=== PATIENT | female | born 1965 | race Caucasian/White ===

== ENCOUNTER 2022-07-02 13:08 | Emergency (ER) | payer MEDICAID ==
[~2022-07-02] VITALS: Ht 165.1 cm; Wt 59.0 kg
[2022-07-02 13:13] VITALS: BP 106/68
[2022-07-02] MEDS ORDERED: ALBUTEROL (0.083%) 2.5MG/3ML NEB HHN STA (14:09)
[2022-07-02] MEDS ORDERED: PREDNISONE 20MG TABLET PO STA (14:09)
[2022-07-02] MEDS ORDERED: IPRATROPIUM BROMIDE (0.02%) 0.5MG/2.5ML NEB HHN STA (14:09)
[2022-07-02] MEDS ORDERED: ACETAMINOPHEN 325MG TABLET PO ONE (14:15)
[2022-07-02] MEDS ORDERED: LEVOFLOXACIN 750MG PREMIX 150 ML IV ONE (15:00)
[2022-07-02 15:19] LABS: HEMATOCRIT. 47.2 % (36.0-48.0); MEAN CORPUSCULAR HEMOGLOBIN 33.5 pg (28.0-32.0); MEAN CORPUSCULAR VOLUME 98.9 fL (81.0-99.0); MEAN PLATELET VOLUME 7.8 fl (7.4-10.4); PLATELET 188 x1000/uL (130-400); RED BLOOD CELL COUNT 4.77 mill/uL (4.2-5.4); RED CELL DISTRIBUTION WIDTH 12.5 % (11.6-14.6)
[2022-07-02 15:29] LABS: CHLORIDE 102 mEq/L (98-107)
[2022-07-02 16:04] LABS: PLATELET ESTIMATE NORMAL
[2022-07-02] MEDS ORDERED: ACETAMINOPHEN 325MG TABLET PO NR (18:00)
[2022-07-02] MEDS ORDERED: PREDNISONE 20MG TABLET PO NR (18:01)
[2022-07-02] MEDS ORDERED: LEVO750T68 MT (19:32)
== END 2022-07-02 19:47 | disposition home or self-care (01) ==
LOC: ER 13:08 → ENRESERV 19:28 → CANRESERV 19:28 → ER 19:47 → CANBEDREQ 22:43
DX: J18.9 Pneumonia, unspecified organism (principal); J44.9 Chronic obstructive pulmonary disease, unspecified; M19.90 Unspecified osteoarthritis, unspecified site; Z91.14 Patient's other noncompliance with medication regimen; Z91.040 Latex allergy status
CPT/HCPCS: 36415; 71045; 80053; 83880; 84484; 85025; 93005; 96365; 99285; J1956; J7512

== ENCOUNTER 2022-07-23 17:13 | Inpatient (IN) | payer MEDICAID ==
[~2022-07-23] VITALS: Ht 165.1 cm; Wt 63.0 kg
[~2022-07-23 17:13] MED LIST: LEVO750T68 MT
[2022-07-23] MEDS ORDERED: ONDANSETRON HCL 4MG/2ML INJ IV STA (18:58)
[2022-07-23] MEDS ORDERED: MORPHINE SULFATE 4 MG/ML CPJ (NOT FOR IM USE) IV STA (18:58)
[2022-07-23] MEDS ORDERED: SODIUM CHLORIDE 0.9% 1,000 ML IV ONE (19:00)
[2022-07-23 19:25] LABS: HEMATOCRIT. 48.3 % (36.0-48.0); HEMOGLOBIN. 16.4 g/dL (12.0-16.0); MEAN CORPUSCULAR HEMOGLOBIN 33.5 pg (28.0-32.0); MEAN CORPUSCULAR VOLUME 98.8 fL (81.0-99.0); MEAN PLATELET VOLUME 7.5 fl (7.4-10.4); PLATELET 311 x1000/uL (130-400); RED BLOOD CELL COUNT 4.89 mill/uL (4.2-5.4); RED CELL DISTRIBUTION WIDTH 12.7 % (11.6-14.6)
[2022-07-23 19:34] LABS: PROTHROMBIN TIME 10.8 sec (9.6-11.0)
[2022-07-23 19:35] LABS: CHLORIDE 103 mEq/L (98-107)
[2022-07-23 19:44] LABS: PLATELET ESTIMATE NORMAL
[2022-07-23] MEDS ORDERED: POTASSIUM CHLORIDE 20MEQ TABLET SR PO NR (20:15)
[2022-07-23] MEDS ORDERED: MORPHINE SULFATE 4 MG/ML CPJ (NOT FOR IM USE) IV NR (23:00)
[2022-07-23] MEDS ORDERED: MAGNESIUM/ALUMINUM HYDROXIDE/SIMETHICONE 30ML UDC PO PRN (23:00)
[2022-07-23] MEDS ORDERED: NITROGLYCERIN 0.4MG TABLET SL SL PRN (23:00)
[2022-07-23] MEDS ORDERED: GUAIFENESIN 200MG/10ML SUGAR FREE UDC PO PRN (23:00)
[2022-07-23] MEDS ORDERED: ONDANSETRON HCL 4MG/2ML INJ IV PRN (23:00)
[2022-07-23] MEDS ORDERED: DOCUSATE SODIUM 100MG CAPSULE PO PRN (23:00)
[2022-07-23] MEDS ORDERED: CLONIDINE 0.1MG TABLET PO PRN (23:00)
[2022-07-23] MEDS ORDERED: ACETAMINOPHEN 325MG TABLET PO PRN (23:00)
[2022-07-23] MEDS ORDERED: PIPERACILLIN/TAZ 3.375G PREMIX 50 ML IV SCH (23:00)
[2022-07-23] MEDS ORDERED: ONDANSETRON HCL 4MG/2ML INJ IV NR (23:00)
[2022-07-23] MEDS ORDERED: IPRATROPIUM/ALBUTEROL 0.5-3(2.5)MG/3ML NEB NEB PRN (23:00)
[2022-07-23] MEDS ORDERED: SODIUM CHLORIDE 0.9% 1000ML BAG (SEPSIS BOLUS) IV ONE (23:15)
[2022-07-23] MEDS ORDERED: IOHEXOL-300 100 ML BOTTLE ONE (23:27)
[2022-07-23] MEDS: PIPERACILLIN/TAZ 3.375G PREMIX 50 ML IV NR (23:43)
[2022-07-24 00:13] LABS: ETHANOL BLOOD < 10 mg/dL; HDL CHOLESTEROL 59 mg/dL (40-59); LDL CHOLESTEROL 81 mg/dL (5-100); T4 FREE 1.16 ng/dL (0.76-1.46); TOTAL IRON BINDING CAPACITY 230 ug/dL (250-450)
[2022-07-24 00:19] LABS: CLARITY URINE CLEAR (CLEAR); COLOR URINE YELLOW (YELLOW); KETONES URINE NEGATIVE (NEGATIVE); LEUKOCYTE ESTERASE URINE TRACE (NEGATIVE); NITRITE URINE NEGATIVE (NEGATIVE); OCCULT BLOOD URINE 2+ (NEGATIVE); PH URINE 7.5 (4.5-8.0); PROTEIN URINE NEGATIVE (NEGATIVE); SPECIFIC GRAVITY URINE 1.007 (1.005-1.030); UROBILINOGEN URINE 0.2 E.U./dL (0.2-1.0)
[2022-07-24 00:30] LABS: VITAMIN B12 SERUM 388 pg/mL (211-911)
[2022-07-24 01:07] LABS: *AMPHETAMINES SCREEN URINE PRESUMTIVE POSITIVE (NEGATIVE); *BARBITURATES SCREEN URINE NEGATIVE (NEGATIVE); *BENZODIAZEPINES SCREEN URINE NEGATIVE (NEGATIVE); *COCAINE SCREEN URINE NEGATIVE (NEGATIVE); CANNABINOID URINE SCREEN PRESUMTIVE POSITIVE (NEGATIVE); METHADONE URINE SCREEN NEGATIVE (NEGATIVE); OPIATES URINE SCREEN PRESUMTIVE POSITIVE (NEGATIVE); PHENCYCLIDINE URINE SCREEN NEGATIVE (NEGATIVE)
[2022-07-24 03:00] VITALS: BP 119/57
[2022-07-24] MEDS: KETOROLAC 15MG/ML VIAL IV PRN ×4 (03:19→22:47)
[2022-07-24 04:00] VITALS: BP 118/55
[2022-07-24] MEDS: PIPERACILLIN/TAZOBACTAM 3.375G in DEXT 5% WATER 50ML IV SCH ×3 (06:05→22:51)
[2022-07-24 08:00] VITALS: BP 127/61
[2022-07-24] MEDS ORDERED: PANTOPRAZOLE SODIUM 40 MG/VIAL IV SCH (09:00)
[2022-07-24] MEDS: ACETAMINOPHEN 325MG TABLET PO PRN (09:05)
[2022-07-24 11:31] LABS: BASOPHILS % 0.3 % (0.0-2.0); EOSINOPHILS % 0.7 % (0.0-5.0); HEMATOCRIT. 42.1 % (36.0-48.0); HEMOGLOBIN. 14.2 g/dL (12.0-16.0); LYMPHOCYTES % 10.3 % (20.0-50.0); MEAN CORPUSCULAR HEMOGLOBIN 33.4 pg (28.0-32.0); MONOCYTES % 7.1 % (2.0-8.0); NEUTROPHILS % 81.6 % (40.0-76.0); PLATELET 230 x1000/uL (130-400); RED BLOOD CELL COUNT 4.25 mill/uL (4.2-5.4); RED CELL DISTRIBUTION WIDTH 12.5 % (11.6-14.6)
[2022-07-24 12:00] VITALS: BP 118/70
[2022-07-24 12:32] LABS: CHLORIDE 108 mEq/L (98-107)
[2022-07-24 12:55] LABS: CREATINE KINASE 62 IU/L (26-192); CREATINE KINASE MB FRACTION 1.9 ng/mL (0.5-3.6); PHOSPHORUS 2.6 mg/dL (2.5-4.9)
[2022-07-24 16:00] VITALS: BP 103/60
[2022-07-24 16:24] LABS: CREATINE KINASE MB FRACTION 1.6 ng/mL (0.5-3.6)
[2022-07-24] MEDS: DEXT 5%/0.9% NACL 1,000 ML IV SCH (17:20)
[2022-07-24 18:29] LABS: FOLIC ACID (FOLATE) SERUM 9.2 ng/mL (>5.38)
[2022-07-24 20:00] VITALS: BP 101/51
[2022-07-24] MEDS: PANTOPRAZOLE SODIUM 40 MG/VIAL IV SCH (21:00)
[2022-07-24] MEDS ORDERED: INFLUENZA VACCINE 05/PF 0.5 ML SYRINGE IM ONE (21:00)
[2022-07-25] VITALS: BP 111/52
[2022-07-25] MEDS: ACETAMINOPHEN 325MG TABLET PO PRN (03:00)
[2022-07-25 04:00] VITALS: BP 135/65
[2022-07-25] MEDS: PIPERACILLIN/TAZOBACTAM 3.375G in DEXT 5% WATER 50ML IV SCH ×3 (06:00→22:09)
[2022-07-25 08:00] VITALS: BP 114/50
[2022-07-25] MEDS: DEXT 5%/0.9% NACL 1,000 ML IV SCH ×3 (08:25→15:59)
[2022-07-25] MEDS: PANTOPRAZOLE SODIUM 40 MG/VIAL IV SCH ×2 (08:26→22:09)
[2022-07-25] MEDS: KETOROLAC 15MG/ML VIAL IV PRN ×3 (08:46→22:16)
[2022-07-25 12:00] VITALS: BP 102/42
[2022-07-25 16:00] VITALS: BP 101/44
[2022-07-25 20:00] VITALS: BP 99/50
[2022-07-26] VITALS: BP 102/59
[2022-07-26] MEDS: ZOLPIDEM TARTRATE 5MG TABLET PO PRN ×2 (00:11→22:41)
[2022-07-26 04:00] VITALS: BP 130/82
[2022-07-26] MEDS: PIPERACILLIN/TAZOBACTAM 3.375G in DEXT 5% WATER 50ML IV SCH ×3 (05:00→21:36)
[2022-07-26] MEDS: KETOROLAC 15MG/ML VIAL IV PRN ×3 (05:02→16:43)
[2022-07-26 08:00] VITALS: BP 128/53
[2022-07-26] MEDS: PANTOPRAZOLE SODIUM 40 MG/VIAL IV SCH ×2 (09:36→21:37)
[2022-07-26] MEDS: DEXT 5%/0.9% NACL 1,000 ML IV SCH ×3 (09:44→16:35)
[2022-07-26 12:00] VITALS: BP 115/47
[2022-07-26] MEDS: ACETAMINOPHEN 325MG TABLET PO PRN (15:19)
[2022-07-26 16:00] VITALS: BP 119/60
[2022-07-26 20:00] VITALS: BP 123/59
[2022-07-27] VITALS: BP 123/57
[2022-07-27] MEDS: DEXT 5%/0.9% NACL 1,000 ML IV SCH ×3 (00:52→15:34)
[2022-07-27 04:00] VITALS: BP 125/63
[2022-07-27] MEDS ORDERED: KETOROLAC 15MG/ML VIAL IV NR (05:30)
[2022-07-27] MEDS: PIPERACILLIN/TAZ 3.375G PREMIX 50 ML IV NR (05:31)
[2022-07-27] MEDS: PIPERACILLIN/TAZOBACTAM 3.375G in DEXT 5% WATER 50ML IV SCH ×3 (06:12→21:23)
[2022-07-27 08:00] VITALS: BP 134/52
[2022-07-27] MEDS: ACETAMINOPHEN 325MG TABLET PO PRN ×2 (09:26→21:24)
[2022-07-27] MEDS: PANTOPRAZOLE SODIUM 40 MG/VIAL IV SCH ×2 (09:26→21:23)
[2022-07-27] MEDS: KETOROLAC 15MG/ML VIAL IV PRN ×2 (11:37→18:25)
[2022-07-27 12:00] VITALS: BP 124/74
[2022-07-27 14:26] LABS: HEMATOCRIT 39.8 % (36.0-48.0); HEMOGLOBIN 13.4 g/dL (12.0-16.0); MEAN CORPUSCULAR HEMOGLOBIN 33.1 pg (28.0-32.0); MEAN CORPUSCULAR VOLUME 97.8 fL (81.0-99.0); PLATELET 287 x1000/uL (130-400); RED BLOOD CELL COUNT 4.07 mill/uL (4.2-5.4); RED CELL DISTRIBUTION WIDTH 12.2 % (11.6-14.6)
[2022-07-27] MEDS ORDERED: CYANOCOBALAMIN 1000MCG/ML VIAL SUBCUT NR (15:15)
[2022-07-27 16:00] VITALS: BP 135/50
[2022-07-27 20:00] VITALS: BP 134/58
[2022-07-27] MEDS: ZOLPIDEM TARTRATE 5MG TABLET PO PRN (21:24)
[2022-07-28] VITALS: BP 139/58
[2022-07-28] MEDS: KETOROLAC 15MG/ML VIAL IV PRN ×2 (00:41→06:31)
[2022-07-28 04:00] VITALS: BP 136/61
[2022-07-28] MEDS: PIPERACILLIN/TAZOBACTAM 3.375G in DEXT 5% WATER 50ML IV SCH (05:57)
[2022-07-28 08:00] VITALS: BP 114/38
[2022-07-28] MEDS: PANTOPRAZOLE SODIUM 40 MG/VIAL IV SCH (08:35)
[2022-07-28] MEDS: DEXT 5%/0.9% NACL 1,000 ML IV SCH ×2 (08:36)
[2022-07-28 08:47] LABS: BASOPHILS % 0.4 % (0.0-2.0); EOSINOPHILS % 3.2 % (0.0-5.0); HEMATOCRIT. 39.6 % (36.0-48.0); HEMOGLOBIN. 13.6 g/dL (12.0-16.0); LYMPHOCYTES % 24.3 % (20.0-50.0); MEAN CORPUSCULAR HEMOGLOBIN 33.5 pg (28.0-32.0); MEAN CORPUSCULAR VOLUME 97.6 fL (81.0-99.0); MEAN PLATELET VOLUME 8.5 fl (7.4-10.4); NEUTROPHILS % 62.1 % (40.0-76.0); PLATELET 291 x1000/uL (130-400); RED BLOOD CELL COUNT 4.05 mill/uL (4.2-5.4); RED CELL DISTRIBUTION WIDTH 12.2 % (11.6-14.6)
[2022-07-28 09:26] LABS: CHLORIDE 110 mEq/L (98-107)
[2022-07-28] MEDS ORDERED: POTASSIUM CHLORIDE 20MEQ TABLET SR PO NR (10:30)
[2022-07-28] MEDS ORDERED: MESA800T MT ×3 (10:36→15:57)
[2022-07-28 11:17] VITALS: BP 113/36
[2022-07-28] MEDS ORDERED: KCL 20MEQ/100ML PREMIX 100 ML IV NR (11:30)
[2022-07-28 12:00] VITALS: BP 111/36
[2022-07-29 13:11] LABS: ATYPICAL P-ANCA <1:20 titer (Neg:<1:20); ATYPICAL pANCA <1:20 titer (Neg:<1:20); CYTOPLASMIC C-ANCA <1:20 titer (Neg:<1:20); PERINUCLEAR P-ANCA <1:20 titer (Neg:<1:20)
[2022-07-29 17:09] LABS: ANTI-MYELOPEROXIDASE AB < 0.2 units (0.0-0.9); ANTI-PROTEINASE 3 ABS < 0.2 units (0.0-0.9)
[2022-07-30 13:11] LABS: SACCHAROMYCES CEREVISIAE IGG 32.1 Units (0.0-24.9); SACCHAROMYCES CEREVISIAE IGM 69.7 Units (0.0-24.9)
== END 2022-07-28 17:00 | disposition home or self-care (01) | DRG 720 ==
LOC: ER 17:13 → MICUSO 22:43 → EDBEDREQ 22:45 → 6EST 07-24 02:31
PROVIDERS: ADMIT Internal Medicine; ATTEND Internal Medicine
DX: A41.9 Sepsis, unspecified organism (principal); E44.1 Mild protein-calorie malnutrition; K92.2 Gastrointestinal hemorrhage, unspecified; K56.7 Ileus, unspecified; K52.9 Noninfective gastroenteritis and colitis, unspecified; J44.9 Chronic obstructive pulmonary disease, unspecified; F19.90 Other psychoactive substance use, unspecified, uncomplicated; E87.6 Hypokalemia; Z20.822 Contact with and (suspected) exposure to COVID-19; M19.90 Unspecified osteoarthritis, unspecified site; D64.9 Anemia, unspecified; M71.22 Synovial cyst of popliteal space [Baker], left knee; Z88.8 Allergy status to other drugs, medicaments and biological substances; Z87.891 Personal history of nicotine dependence; Z79.899 Other long term (current) drug therapy; Z68.23 Body mass index [BMI] 23.0-23.9, adult
CPT/HCPCS: 36415; 71045; 74177; 80053; 80061; 80305; 80320; 81003; 82270; 82550; 82553; 82607; 82728; 82746; 83036; 83520; 83540; 83550; 83605; 83735; 84100; 84439; 84443; 84484; 85025; 85027; 85651; 86256; 86671; 87015; 87045; 87426; 87427; 87449; 89055; 90686; 93005; 93306; 93970; 99285; C1893; C9113; J1885; J2270; J2405; J2543; J3420; J3480; J7030; J7042; J7060; Q9967; G0480